=== PATIENT | male | born 1970 | race Caucasian/White ===

== ENCOUNTER 2018-04-14 16:29 | Emergency (ER) | payer OTHER ==
[~2018-04-14] VITALS: Ht 170.2 cm; Wt 99.1 kg
[2018-04-14 16:35] VITALS: Ht 170.2 cm; Wt 99.1 kg
[2018-04-14 19:31] VITALS: BP 113/56
== END 2018-04-14 19:31 | disposition home or self-care (01) ==
LOC: ED 16:29
DX: T24.201A Burn of second degree of unspecified site of right lower limb, except ankle and foot, initial encounter (principal); T24.202A Burn of second degree of unspecified site of left lower limb, except ankle and foot, initial encounter; X08.8XXA Exposure to other specified smoke, fire and flames, initial encounter; Y93.89 Activity, other specified; Y92.89 Other specified places as the place of occurrence of the external cause; Y99.8 Other external cause status